=== PATIENT | male | born 2005 | race Caucasian/White ===

== ENCOUNTER 2024-12-14 15:14 | Emergency (ER) | payer MEDICAID, SELFPAY ==
[2024-12-14 15:20] VITALS: BP 156/95; PULSE 96; RESP 16; TEMP 36.6; O2SAT 96; BMI 28.8
[2024-12-14 15:27] VITALS: BP 143/92; PULSE 102; O2SAT 94
--- NOTE | 2024-12-14 15:31 | PC.NURSE ---
pt soaking hand in hibiclens
--- NOTE | 2024-12-14 16:07 | ED_ITS ---
Discharge Plan Disposition Patient Disposition: Home, Self-Care Condition: Good Prescriptions Prescriptions: New cephalexin 500 mg tablet 500 mg PO BID 7 Days Qty: 14 0RF Referrals Follow up/Referrals: Provider,Referral, MD [Primary Care Provider] - See instructions Activity Restrictions/Add. Instructions Additional Instructions/Restrictions: Keep sutures clean and dry Monitor for signs and symptoms of infection If symptoms worsen or do not improve return Follow-up in 7 to 10 days to have sutures removed Clinical Impressions Clinical Impression: Laceration Instructions Patient Instructions: DI for Laceration Repair Print Language Print Language: Slovak Discharge ED Provider: Josias Lenz General Adult HPI <[facility] RECOVERY COORDINATOR - Last Filed: 12/14/24 16:13> General Chief complaint: Wound/Laceration Stated complaint: AO 14:15 lac to right pinky Time Seen by Provider: 12/14/24 15:18 Mode of Arrival: Ambulatory Source of Information: Patient Description of Symptoms (Recalled from ER Triage Doc. by RN): Patient reports cutting their right pinky finger with a knife. History of Present Illness HPI narrative: 19-year-old male presents for a laceration to right pinky finger. Patient states he cut it with a knife about an hour before arrival. Last tetanus is unknown Related Data Previous Rx's ?Medication ?Instructions ?Recorded cephalexin 500 mg tablet 500 mg PO BID 7 days #14 tabs 12/14/24 Allergies Allergy/AdvReac Type Severity Reaction Status Date / Time acetaminophen (From Tylenol) Allergy Anaphylaxis Verified 12/14/24 15:23 PFSH <[facility]phy [facility] RECOVERY COORDINATOR - Last Filed: 12/14/24 16:13> [facility] Disclaimer: The information contained in this section may have been updated after the patient was seen, as this information can be updated by other users. Social History (Updated 12/14/24 @ 16:[address] RECOVERY COORDINATOR) Smoking Status: Current every day smoker alcohol intake: never current occupational status: student Travel in the last 8 weeks: None Have you lived/traveled outside [place] in past 30 days?: No Contact w/someone who lives/traveled outside [place] past 30 days?: No Exposure to someone with infectious disease in past 14 days?: No Do you have a fever (greater than 100.4 F or 38 C)?: No Have you tested positive for COVID-19: No Exposed to someone with COVID-19 in past 14 days?: No Do you have a sore throat?: No Do you have a cough?: No Do you have any weakness?: No Do you have any diarrhea?: No Are you experiencing any unusual bleeding?: No Do you have any muscle aches/pain?: No Do you have any abdominal pain?: No Are you experiencing loss of taste or smell?: No <Stephy Garcia ([facility]), RECOVERY COORDINATOR - Last Filed: 12/14/24 16:13> ROS Obtained: Yes Systems reviewed as appropriate & no additional complaints except as documented Integumentary/Breasts Skin/Breast: Reports system reviewed and no additional complaints, except as documented, Reports as per HPI and Reports other (Laceration) Physical Exam <Stephy Garcia ([facility]), RECOVERY COORDINATOR - Last Filed: 12/14/24 16:13> General General appearance: alert and in no apparent distress ENT ENT exam: Present normal exam Respiratory Respiratory exam: Present normal lung sounds bilaterally Cardiovascular Cardiovascular exam: Present regular rate and normal rhythm Expanded Upper Extremity Exam Right: Hand L/R front image: 2 1. laceration Neurological Exam Neurological exam: Present alert and oriented X3 Skin Skin exam: Present warm Medical Decision Making <Stephy Garcia ([facility]), RECOVERY COORDINATOR - Last Filed: 12/14/24 16:13> Medical Records Medical records reviewed: Yes I reviewed the patient's medical records. Screening: Per USPSTF and CDC recommendations, given the prevalence of disease in our region, it is our hospital?s policy to screen for HIV and viral Hepatitis for all patients aged 18 and over and those with ongoing risk factors. Jerrod Inquiry Pt receiving controlled substance: No Jerrod was queried for this patient: No Vital Signs: 12/14/24 15:20 12/14/24 15:27 12/14/24 16:27 Temperature 97.9 F 98.1 F Temperature Source Oral Oral Pulse Rate 102 H 69 Pulse Rate [Radial] 96 H Respiratory Rate 16 14 Blood Pressure 143/92 H 120/86 Blood Pressure [Right Arm] 156/95 H Blood Pressure Mean [Right Arm] 115 Blood Pressure Source Automatic Cuff Blood Pressure Source [Right Arm] Automatic Cuff Blood Pressure Position Sitting Blood Pressure Position [Right Arm] Sitting 02 Sat by Pulse Oximetry 96 94 L Oxygen Delivery Method Room Air Room Air Room Air Orders (Tests/Meds): ED MEDICATIONS Discontinued Medications Generic Name Dose Route Start Last Admin Trade Name Freq PRN Reason Stop Dose Admin Tetanus/Reduced Diphtheria/Acell Pertussis 0.5 ml 12/14/24 16:07 12/14/24 16:16 Tet/Diphth/Pert-Adult 0.5ml Syringe IM 12/14/24 16:08 0.5 ml .ONCE ONE Administration Medical Decision Narrative: In summary patient is a 19-year-old male who presents to the emergency department for evaluation of laceration to right pinky finger. Patient is more dynamically stable upon arrival. Laceration to right pinky finger. Differential diagnosis includes laceration. Initial workup will be conducted with laceration. Initial inventions include 3 sutures and Tdap. Upon repeat evaluation sutures placed Tdap given instructions given to patient. Given this patient is appropriate for discharge will discharge home and to return 7 to 10 days to have sutures removed <Josias Lenz MD - Last Filed: 12/14/24 19:59> Vital Signs: 12/14/24 15:20 12/14/24 15:27 12/14/24 16:27 Temperature 97.9 F 98.1 F Temperature Source Oral Oral Pulse Rate 102 H 69 Pulse Rate [Radial] 96 H Respiratory Rate 16 14 Blood Pressure 143/92 H 120/86 Blood Pressure [Right Arm] 156/95 H Blood Pressure Mean [Right Arm] 115 Blood Pressure Source Automatic Cuff Blood Pressure Source [Right Arm] Automatic Cuff Blood Pressure Position Sitting Blood Pressure Position [Right Arm] Sitting 02 Sat by Pulse Oximetry 96 94 L Oxygen Delivery Method Room Air Room Air Room Air Orders (Tests/Meds): ED MEDICATIONS Discontinued Medications Generic Name Dose Route Start Last Admin Trade Name Freq PRN Reason Stop Dose Admin Tetanus/Reduced Diphtheria/Acell Pertussis 0.5 ml 12/14/24 16:07 12/14/24 16:16 Tet/Diphth/Pert-Adult 0.5ml Syringe IM 12/14/24 16:08 0.5 ml .ONCE ONE Administration Medical Decision Narrative: In summary patient is a 19-year-old male who presents to the emergency department for evaluation of laceration to right pinky finger. Patient is more dynamically stable upon arrival. Laceration to right pinky finger. Differential diagnosis includes laceration. Initial workup will be conducted with laceration. Initial inventions include 3 sutures and Tdap. Upon repeat evaluation sutures placed Tdap given instructions given to patient. Given this patient is appropriate for discharge will discharge home and to return 7 to 10 days to have sutures removed I was consulted by the JULIA, and we discussed the complexity of the problems being addressed. I approved the treatment and management plan for this patient's care in the Emergency Department, thus performing a substantive portion of the medical decision making. Josias Lenz MD Procedures <Stephy Garcia ([facility]), RECOVERY COORDINATOR - Last Filed: 12/14/24 16:13> Laceration Laceration 1: Site: finger Side (If applicable): right Size (cm): 2 Description: flap Depth: simple, single layer Local Anesthetic: lidocaine 1% Amount of anesthesia used (mL): 3 Pre-repair: wound explored, irrigated extensively and deep structures intact Skin layer closed with: nylon Size (cm): 4-0 Number of sutures: 3 Critical Care <Stephy Garcia ([facility]), RECOVERY COORDINATOR - Last Filed: 12/14/24 16:13> Critical Care Time Critical Care Time: No
[2024-12-14] MEDS: TET/DIPHTH/PERT-ADULT 0.5ML SYRINGE 0.5 ML IM (16:16)
[2024-12-14 16:27] VITALS: BP 120/86; PULSE 69; RESP 14; TEMP 36.7
== END 2024-12-14 16:28 | disposition home or self-care (01) ==
PROVIDERS: Emergency Provider Emergency Medicine
DX: S61.216A Laceration without foreign body of right little finger without damage to nail, initial encounter (principal); Z72.0 Tobacco use; W26.0XXA Contact with knife, initial encounter; Y93.89 Activity, other specified; Y92.000 Kitchen of unspecified non-institutional (private) residence as the place of occurrence of the external cause; Z23 Encounter for immunization
CPT/HCPCS: 12001; 90471; 90715; 99283